=== PATIENT | male | born 1985 | race Caucasian/White ===

== ENCOUNTER 2021-09-13 22:12 | Inpatient (IN) | payer OTHER ==
[~2021-09-13] VITALS: Ht 180.3 cm; Wt 91.7 kg
[2021-09-13] MEDS ORDERED: LORazepam 2 MG/ML VIAL IV STA ×2 (22:25→22:29)
[2021-09-13] MEDS ORDERED: LORazepam 2 MG/ML VIAL As Ordered ONE (22:26)
[2021-09-13] MEDS ORDERED: NS 1,000 ML IV ONE (22:30)
[2021-09-13 22:41] LABS: BASO % 0.2 % (0.0-1.0); EOS % 0.1 % (0.0-3.0); HEMATOCRIT 48.9 % (42.0-52.0); HEMOGLOBIN 17.2 g/dl (13.5-17.5); LYMPH # 1.4 10^3/uL (1.5-5.0); LYMPH % 10.1 % (24.0-44.0); MEAN CORPUSCULAR HEMOGLOBIN 33.5 pg (27.0-33.0); MEAN CORPUSCULAR HGB CONC 35.2 g/dl (32.0-36.5); MEAN CORPUSCULAR VOLUME 95.3 fl (80.0-96.0); MONO % 12.4 % (2.0-8.0); NEUTROPHILS # 10.8 10^3/uL (1.5-8.5); NEUTROPHILS % 76.2 % (36.0-66.0); PLATELET COUNT, AUTOMATED 208 10^3/uL (150-450); RED BLOOD COUNT 5.13 10^6/uL (4.30-6.10); WHITE BLOOD COUNT 14.2 10^3/uL (4.0-10.0)
[2021-09-13 23:02] LABS: MONO # 1.8 10^3/uL (0.0-0.8)
[2021-09-13 23:08] LABS: OSMOLALITY SERUM 299 MOSM/KG (275-295)
[2021-09-13] MEDS ORDERED: MAGNESIUM SULFATE IN WATER 2 GM in IV 1 EA IV STA ×2 (23:16)
[2021-09-13 23:21] LABS: ABG BASE EXCESS -2.7 (-2.0-2.0); ABG HCO3 20.5 MEQ/L (22.0-26.0); ABG O2 SATURATION 98.6 % (95.0-99.0); ABG PARTIAL PRESSURE CO2 31.9 mmHg (35.0-45.0); ABG PARTIAL PRESSURE O2 134.5 mmHg (75.0-100.0); ABG STANDARD HCO3 22.3 MEQ/L (22.0-26.0); ABG TOTAL CO2 21.5 MEQ/L (22.0-29.0); ABG pH (ARTERIAL) 7.426 UNITS (7.350-7.450)
[2021-09-13 23:23] LABS: ACETAMINOPHEN LEVEL < 2.0 UG/ML (10.0-30.0); ALBUMIN 4.8 GM/DL (3.2-5.2); ALT/SGPT 271 U/L (12-78); BILIRUBIN,DIRECT 1.5 MG/DL (0.0-0.2); BILIRUBIN,TOTAL 4.4 MG/DL (0.2-1.0); BLOOD UREA NITROGEN 13 MG/DL (7-18); CALCIUM LEVEL 10.8 MG/DL (8.5-10.1); CARBON DIOXIDE LEVEL 16 MEQ/L (21-32); CHLORIDE LEVEL 91 MEQ/L (98-107); CREATININE FOR GFR 1.74 MG/DL (0.70-1.30); ETHYL ALCOHOL (ETHANOL) < 0.003 % (0.000-0.010); GLOMERULAR FILTRATION RATE 47.8 (>60); GLUCOSE, FASTING 170 MG/DL (70-100); MAGNESIUM LEVEL 1.7 MG/DL (1.8-2.4); PHOSPHORUS LEVEL 3.5 MG/DL (2.5-4.9); POTASSIUM SERUM 3.4 MEQ/L (3.5-5.1); SALICYLATE LEVEL < 1.7 MG/DL (5.0-30.0); SODIUM LEVEL 137 MEQ/L (136-145); TOTAL PROTEIN 8.5 GM/DL (6.4-8.2)
[2021-09-13] MEDS ORDERED: cefTRIAXone SOD 2 GM in D5W MINI-BAG PLUS 50 ML IV ONE (23:30)
[2021-09-13] MEDS ORDERED: NS 1,590 ML in IV 1 EA IV ONE (23:30)
[2021-09-13] MEDS ORDERED: ISOVUE-370 76% 100ML VIAL As Ordered ONE (23:42)
[2021-09-14] VITALS (18 sets, daily range): BP systolic 115–150; BP diastolic 64–96
[2021-09-14] MEDS ORDERED: OXAZEPAM 15MG CAP PO ONE (00:45)
[2021-09-14] MEDS ORDERED: THIAMINE 200MG 2ML VIAL IM ONE (01:50)
[2021-09-14 01:51] LABS: RSV AMPLIFICATION NEGATIVE (NEGATIVE)
[2021-09-14] MEDS: NS 1,000 ML IV SCH ×2 (02:34→05:16)
[2021-09-14] MEDS: levETIRAcetam INJection 500 MG in D5W MINI-BAG PLUS 100 ML IV SCH ×2 (02:43→14:58)
[2021-09-14] MEDS: chlordiazePOXIDE 25 MG CAP PO SCH ×3 (02:43→20:48)
[2021-09-14 03:00] LABS: AMPHETAMINES LEVEL URINE NEGATIVE (NEGATIVE); BARBITURATES URINE NEGATIVE (NEGATIVE); BENZODIAZEPINES URINE NEGATIVE (NEGATIVE); CANNABINOIDS URINE NEGATIVE (NEGATIVE); COCAINE METABOLITE URINE NEGATIVE (NEGATIVE); METHADONE URINE NEGATIVE (NEGATIVE); OPIATES URINE NEGATIVE (NEGATIVE); PHENCYCLIDINE URINE NEGATIVE (NEGATIVE)
[2021-09-14 05:23] LABS: INR 1.15; PROTHROMBIN TIME 15.1 SECONDS (12.7-14.5)
[2021-09-14] MEDS ORDERED: LORazepam 2 MG/ML VIAL IV STA ×2 (05:30→05:44)
[2021-09-14] MEDS ORDERED: AMLO1TAB25 PO (06:05)
[2021-09-14] MEDS ORDERED: LOSA25TA13 PO (06:05)
[2021-09-14] MEDS ORDERED: HOME MED LIST COMPLETE! XX SCH (06:10)
[2021-09-14 06:11] LABS: ALBUMIN 3.3 GM/DL (3.2-5.2); ALT/SGPT 183 U/L (12-78); BILIRUBIN,TOTAL 2.2 MG/DL (0.2-1.0); BLOOD UREA NITROGEN 10 MG/DL (7-18); CALCIUM LEVEL 7.7 MG/DL (8.5-10.1); CARBON DIOXIDE LEVEL 27 MEQ/L (21-32); CHLORIDE LEVEL 97 MEQ/L (98-107); CREATININE FOR GFR 0.92 MG/DL (0.70-1.30); GLOMERULAR FILTRATION RATE > 60.0 (>60); GLUCOSE, FASTING 88 MG/DL (70-100); POTASSIUM SERUM 2.1 MEQ/L (3.5-5.1); SODIUM LEVEL 133 MEQ/L (136-145); TOTAL PROTEIN 6.3 GM/DL (6.4-8.2)
[2021-09-14] MEDS ORDERED: POTASSIUM CHLORIDE 10% LIQ 20 MEQ/15 ML UDC PO ONE (06:20)
[2021-09-14] MEDS: KCL 10MEQ/100ML SWI (KRUN) 10 MEQ in IV 1 EA IV SCH ×6 (06:50→21:38)
[2021-09-14] MEDS ORDERED: MAGNESIUM SULFATE IN WATER 2 GM in IV 1 EA IV STA ×2 (06:59)
[2021-09-14] MEDS ORDERED: NS 1,000 ML IV ONE (07:00)
[2021-09-14] MEDS ORDERED: MAG SULF 1GM/100ML (MAG RUN) 1 GM in IV 1 EA IV SCH (07:45)
[2021-09-14] MEDS: THIAMINE 100 MG TAB PO SCH (09:06)
[2021-09-14] MEDS: MULTIVITAMINS/MINERALS THERAP 1 TAB PO SCH (09:06)
[2021-09-14] MEDS: LORazepam 2 MG TAB PO PRN ×2 (09:07→15:01)
[2021-09-14] MEDS: FOLIC ACID 1 MG TAB PO SCH (09:07)
[2021-09-14 12:53] LABS: POTASSIUM SERUM 2.6 MEQ/L (3.5-5.1)
[2021-09-14] MEDS ORDERED: POTASSIUM CHLORIDE 10MEQ SR TABLET PO ONE ×2 (14:50→23:30)
[2021-09-14] MEDS: LORazepam 2 MG TAB PO SCH ×2 (18:00→23:00)
[2021-09-14 19:20] LABS: POTASSIUM SERUM 2.5 MEQ/L (3.5-5.1)
[2021-09-15] VITALS (8 sets, daily range): BP systolic 133–147; BP diastolic 70–100
[2021-09-15] MEDS ORDERED: POTASSIUM CHLORIDE 10MEQ SR TABLET PO ONE ×2 (02:30→09:00)
[2021-09-15] MEDS: LORazepam 2 MG TAB PO SCH ×2 (06:02→11:51)
[2021-09-15 07:15] LABS: BASO % 0.4 % (0.0-1.0); EOS % 0.6 % (0.0-3.0); HEMATOCRIT 39.1 % (42.0-52.0); LYMPH % 20.4 % (24.0-44.0); MEAN CORPUSCULAR HEMOGLOBIN 33.6 pg (27.0-33.0); MEAN CORPUSCULAR HGB CONC 35.8 g/dl (32.0-36.5); MEAN CORPUSCULAR VOLUME 93.8 fl (80.0-96.0); MONO # 0.5 10^3/uL (0.0-0.8); MONO % 9.2 % (2.0-8.0); NEUTROPHILS # 3.5 10^3/uL (1.5-8.5); NEUTROPHILS % 68.8 % (36.0-66.0); PLATELET COUNT, AUTOMATED 136 10^3/uL (150-450); RED BLOOD COUNT 4.17 10^6/uL (4.30-6.10); WHITE BLOOD COUNT 5.1 10^3/uL (4.0-10.0)
[2021-09-15 07:55] LABS: ALBUMIN 3.3 GM/DL (3.2-5.2); ALT/SGPT 154 U/L (12-78); BILIRUBIN,TOTAL 2.7 MG/DL (0.2-1.0); BLOOD UREA NITROGEN 5 MG/DL (7-18); CALCIUM LEVEL 7.6 MG/DL (8.5-10.1); CARBON DIOXIDE LEVEL 22 MEQ/L (21-32); CHLORIDE LEVEL 105 MEQ/L (98-107); CREATININE FOR GFR 0.65 MG/DL (0.70-1.30); GLOMERULAR FILTRATION RATE > 60.0 (>60); GLUCOSE, FASTING 78 MG/DL (70-100); POTASSIUM SERUM 3.2 MEQ/L (3.5-5.1); SODIUM LEVEL 138 MEQ/L (136-145); TOTAL PROTEIN 6.2 GM/DL (6.4-8.2)
[2021-09-15] MEDS: FOLIC ACID 1 MG TAB PO SCH (08:39)
[2021-09-15] MEDS: THIAMINE 100 MG TAB PO SCH (08:39)
[2021-09-15] MEDS: MULTIVITAMINS/MINERALS THERAP 1 TAB PO SCH (08:39)
[2021-09-15] MEDS ORDERED: CALCIUM GLUCONATE 1,000 MG in D5W MINI-BAG PLUS 100 ML IV ONE (09:00)
[2021-09-15] MEDS: KCL 10MEQ/100ML SWI (KRUN) 10 MEQ in IV 1 EA IV SCH ×3 (09:28→11:50)
[2021-09-15 09:37] LABS: MAGNESIUM LEVEL 1.7 MG/DL (1.8-2.4)
[2021-09-15] MEDS ORDERED: MAG SULF 1GM/100ML (MAG RUN) 1 GM in IV 1 EA IV ONE (13:00)
[2021-09-15 13:42] LABS: BLOOD UREA NITROGEN 6 MG/DL (7-18); CALCIUM LEVEL 8.2 MG/DL (8.5-10.1); CARBON DIOXIDE LEVEL 27 MEQ/L (21-32); CHLORIDE LEVEL 102 MEQ/L (98-107); CREATININE FOR GFR 0.66 MG/DL (0.70-1.30); GLOMERULAR FILTRATION RATE > 60.0 (>60); GLUCOSE, FASTING 95 MG/DL (70-100); POTASSIUM SERUM 3.8 MEQ/L (3.5-5.1); SODIUM LEVEL 135 MEQ/L (136-145)
[2021-09-15] MEDS ORDERED: VITMTA PO (13:59)
[2021-09-15] MEDS ORDERED: THIA100TA PO (13:59)
[2021-09-15] MEDS ORDERED: FOLI1TAB11 PO (13:59)
[2021-09-15] MEDS ORDERED: POTA-151 PO (14:35)
== END 2021-09-15 15:10 | disposition home or self-care (01) | DRG 898 ==
LOC: M ED 22:12 → M ED INP 09-14 01:46 → M ICU 09-14 04:49
PROVIDERS: ADMIT Internal Medicine; ATTEND Internal Medicine
DX: F10.231 Alcohol dependence with withdrawal delirium (principal); E87.2 Acidosis; N17.9 Acute kidney failure, unspecified; I10 Essential (primary) hypertension; F32.A Depression, unspecified; K70.10 Alcoholic hepatitis without ascites; E87.6 Hypokalemia; Z20.822 Contact with and (suspected) exposure to COVID-19; Z79.899 Other long term (current) drug therapy; D72.829 Elevated white blood cell count, unspecified; G40.409 Other generalized epilepsy and epileptic syndromes, not intractable, without status epilepticus; E83.42 Hypomagnesemia; E83.51 Hypocalcemia

== ENCOUNTER 2021-09-22 23:32 | Emergency (ER) | payer OTHER ==
[~2021-09-22] VITALS: Ht 180.3 cm; Wt 90.9 kg
[~2021-09-22 23:32] MED LIST: AMLO1TAB25 PO; FOLI1TAB11 PO; LOSA25TA13 PO; POTA-151 PO; THIA100TA PO; VITMTA PO
[2021-09-23] MEDS ORDERED: LORazepam 2 MG/ML VIAL IV STA (01:07)
[2021-09-23] MEDS ORDERED: OXAZEPAM 15MG CAP PO ONE (01:10)
[2021-09-23 01:28] LABS: BASO # 0.1 10^3/uL (0.0-0.2); BASO % 1.7 % (0.0-1.0); EOS % 0.9 % (0.0-3.0); HEMATOCRIT 39.3 % (42.0-52.0); HEMOGLOBIN 13.5 g/dl (13.5-17.5); LYMPH # 1.4 10^3/uL (1.5-5.0); LYMPH % 41.6 % (24.0-44.0); MEAN CORPUSCULAR HEMOGLOBIN 33.4 pg (27.0-33.0); MEAN CORPUSCULAR HGB CONC 34.4 g/dl (32.0-36.5); MEAN CORPUSCULAR VOLUME 97.3 fl (80.0-96.0); MONO # 0.5 10^3/uL (0.0-0.8); MONO % 13.4 % (2.0-8.0); NEUTROPHILS # 1.4 10^3/uL (1.5-8.5); NEUTROPHILS % 41.5 % (36.0-66.0); PLATELET COUNT, AUTOMATED 360 10^3/uL (150-450); RED BLOOD COUNT 4.04 10^6/uL (4.30-6.10); WHITE BLOOD COUNT 3.4 10^3/uL (4.0-10.0)
[2021-09-23] MEDS ORDERED: MIDAZOLAM INJ 2MG/2ML VIAL (J2250 PER 1MG) IV ONE ×2 (01:35→06:00)
[2021-09-23 02:06] LABS: RSV AMPLIFICATION NEGATIVE (NEGATIVE)
[2021-09-23 02:13] LABS: ACETAMINOPHEN LEVEL < 2.0 UG/ML (10.0-30.0); ALBUMIN 3.4 GM/DL (3.2-5.2); ALT/SGPT 341 U/L (12-78); BILIRUBIN,DIRECT 0.4 MG/DL (0.0-0.2); BILIRUBIN,TOTAL 0.6 MG/DL (0.2-1.0); BLOOD UREA NITROGEN 8 MG/DL (7-18); CALCIUM LEVEL 7.7 MG/DL (8.5-10.1); CARBON DIOXIDE LEVEL 29 MEQ/L (21-32); CHLORIDE LEVEL 110 MEQ/L (98-107); CREATININE FOR GFR 0.75 MG/DL (0.70-1.30); ETHYL ALCOHOL (ETHANOL) 0.234 % (0.000-0.010); GLOMERULAR FILTRATION RATE > 60.0 (>60); GLUCOSE, FASTING 104 MG/DL (70-100); POTASSIUM SERUM 3.1 MEQ/L (3.5-5.1); SALICYLATE LEVEL < 1.7 MG/DL (5.0-30.0); SODIUM LEVEL 146 MEQ/L (136-145); TOTAL PROTEIN 6.4 GM/DL (6.4-8.2)
[2021-09-23] MEDS ORDERED: diazePAM 10 MG TAB PO ONE (06:00)
[2021-09-23 06:43] VITALS: BP 149/98
[2021-09-23 06:45] LABS: AMPHETAMINES LEVEL URINE NEGATIVE (NEGATIVE); BARBITURATES URINE NEGATIVE (NEGATIVE); BENZODIAZEPINES URINE POSITIVE (NEGATIVE); CANNABINOIDS URINE NEGATIVE (NEGATIVE); COCAINE METABOLITE URINE NEGATIVE (NEGATIVE); METHADONE URINE NEGATIVE (NEGATIVE); OPIATES URINE NEGATIVE (NEGATIVE); PHENCYCLIDINE URINE NEGATIVE (NEGATIVE)
== END 2021-09-23 06:48 | disposition short-term general hospital (02) ==
LOC: M ED 23:32
DX: F10.239 Alcohol dependence with withdrawal, unspecified (principal); Y90.1 Blood alcohol level of 20-39 mg/100 ml
CPT/HCPCS: 80048; 80076; 80143; 80307; 82077; 82550; 84443; 85025; 87631; 93005; 96374; 96376; 99285; J2250

== ENCOUNTER 2021-12-30 21:09 | Emergency (ER) | payer OTHER ==
[~2021-12-30] VITALS: Ht 182.9 cm; Wt 88.6 kg
[2021-12-31 08:26] VITALS: BP 140/90
[2021-12-31] MEDS ORDERED: ZOLO100T PO (08:52)
[2021-12-31] MEDS ORDERED: NALT50TA4 PO (08:52)
[2021-12-31] MEDS ORDERED: PRAZ1CAP PO (08:52)
== END 2021-12-31 08:55 | disposition home or self-care (01) ==
LOC: M ED 21:09
DX: F10.10 Alcohol abuse, uncomplicated (principal); I10 Essential (primary) hypertension; R25.1 Tremor, unspecified; Z79.899 Other long term (current) drug therapy

== ENCOUNTER 2022-01-09 20:24 | Emergency (ER) | payer OTHER ==
[~2022-01-09] VITALS: Ht 182.9 cm; Wt 86.4 kg
[~2022-01-09 20:24] MED LIST changes: +NALT50TA4 PO; +PRAZ1CAP PO; +ZOLO100T PO
[2022-01-09 20:25] VITALS: BP 131/87
[2022-01-09] MEDS ORDERED: OXAZEPAM 15MG CAP PO ONE ×2 (21:50→22:10)
[2022-01-09] MEDS ORDERED: OXAZ30CA2 PO (22:07)
== END 2022-01-09 22:21 | disposition home or self-care (01) ==
LOC: M ED 20:24
DX: F10.139 Alcohol abuse with withdrawal, unspecified (principal); F32.A Depression, unspecified; F43.10 Post-traumatic stress disorder, unspecified; I10 Essential (primary) hypertension; F17.290 Nicotine dependence, other tobacco product, uncomplicated; Z79.899 Other long term (current) drug therapy

== ENCOUNTER 2022-05-23 11:51 | Inpatient (IN) | payer OTHER ==
[~2022-05-23] VITALS: Ht 182.9 cm; Wt 94.2 kg
[~2022-05-23 11:51] MED LIST changes: +FOLIC ACID 1MG TAB PO SCH; +MULTIVITAMINS/MINERALS THERAP 1 TAB PO SCH; +OXAZ30CA2 PO
[2022-05-23] MEDS ORDERED: TRAZ1TAB14 PO (12:04)
[2022-05-23] MEDS ORDERED: BUSP10TA PO (12:04)
[2022-05-23] MEDS ORDERED: NS 1,000 ML IV ONE (12:40)
[2022-05-23] MEDS ORDERED: LOSARTAN 25 MG TAB PO ONE (12:40)
[2022-05-23 13:02] LABS: HEMATOCRIT 42.5 % (42.0-52.0); HEMOGLOBIN 14.4 g/dl (13.5-17.5); MEAN CORPUSCULAR HEMOGLOBIN 31.6 pg (27.0-33.0); MEAN CORPUSCULAR HGB CONC 33.9 g/dl (32.0-36.5); MEAN CORPUSCULAR VOLUME 93.2 fl (80.0-96.0); PLATELET COUNT, AUTOMATED 265 10^3/uL (150-450); RED BLOOD COUNT 4.56 10^6/uL (4.30-6.10); WHITE BLOOD COUNT 5.3 10^3/uL (4.0-10.0)
[2022-05-23] MEDS ORDERED: LORazepam 2 MG TAB PO PRN ×3 (13:40→23:35)
[2022-05-23 13:44] LABS: ACETAMINOPHEN LEVEL < 2.0 UG/ML (10.0-20.0); ALBUMIN 4.4 G/DL (3.2-5.2); ALKALINE PHOSPHATASE 72 U/L (46-116); ALT/SGPT 24 U/L (7.0-40); AST/SGOT 31 U/L (<34); BILIRUBIN,DIRECT 0.2 MG/DL (<0.4); BILIRUBIN,TOTAL 0.8 MG/DL (0.3-1.2); BLOOD UREA NITROGEN 13 MG/DL (9-23); CALCIUM LEVEL 8.7 MG/DL (8.5-10.1); CARBON DIOXIDE LEVEL 25 MMOL/L (20-31); CHLORIDE LEVEL 106 MMOL/L (98-107); CREATININE FOR GFR 0.76 MG/DL (0.70-1.30); ETHYL ALCOHOL (ETHANOL) 0.204 % (0.000-0.010); GLOMERULAR FILTRATION RATE > 60.0 (>60); GLUCOSE, FASTING 140 MG/DL (60-100); POTASSIUM SERUM 3.7 MMOL/L (3.5-5.1); SALICYLATE LEVEL < 3.0 MG/DL (<30); SODIUM LEVEL 142 MMOL/L (136-145); THYROID STIMULATING HORMONE 0.484 uIU/ML (0.55-4.78)
[2022-05-23 14:14] LABS: AMPHETAMINES LEVEL URINE NEGATIVE (NEGATIVE); BARBITURATES URINE NEGATIVE (NEGATIVE); BENZODIAZEPINES URINE NEGATIVE (NEGATIVE); CANNABINOIDS URINE NEGATIVE (NEGATIVE); COCAINE METABOLITE URINE NEGATIVE (NEGATIVE); METHADONE URINE NEGATIVE (NEGATIVE); OPIATES URINE NEGATIVE (NEGATIVE); PHENCYCLIDINE URINE NEGATIVE (NEGATIVE)
[2022-05-23] MEDS: THIAMINE 100 MG TAB PO SCH ×2 (16:29→21:20)
[2022-05-23] MEDS ORDERED: IBUP200T43 PO (18:04)
[2022-05-23] MEDS ORDERED: HOME MED LIST COMPLETE! XX SCH (18:05)
[2022-05-23] MEDS ORDERED: SERTRALINE 100 MG TAB PO SCH (21:00)
[2022-05-23] MEDS ORDERED: PRAZOSIN 1 MG CAP PO SCH (21:00)
[2022-05-23] MEDS ORDERED: traZODone 100 MG TAB PO SCH (21:00)
[2022-05-23] MEDS ORDERED: busPIRone 10 MG TAB PO SCH (21:00)
[2022-05-23] MEDS ORDERED: THIAMINE 100 MG TAB PO SCH (21:00)
[2022-05-23] MEDS ORDERED: MAALOX 30 ML SUSP *UDC PO PRN (23:35)
[2022-05-23] MEDS ORDERED: OLANZapine ORAL DISINTEGRATING TAB 5MG PO PRN (23:35)
[2022-05-23] MEDS ORDERED: MOM 30ML SUSPENSION UDC PO PRN (23:35)
[2022-05-23] MEDS ORDERED: ACETAMINOPHEN TAB 650MG DOSE (2X325MG) PO PRN (23:35)
[2022-05-24 01:02] VITALS: BP 135/84
[2022-05-24 01:03] VITALS: BP 135/84
[2022-05-24] MEDS: MULTIVITAMINS/MINERALS THERAP 1 TAB PO SCH (07:53)
[2022-05-24] MEDS: LOSARTAN 25 MG TAB PO SCH (07:53)
[2022-05-24] MEDS: THIAMINE 100 MG TAB PO SCH ×2 (07:53→20:10)
[2022-05-24] MEDS: FOLIC ACID 1MG TAB PO SCH (07:54)
[2022-05-24] MEDS: NICOTINE 21MG/24HR 1 EA TRANSDERMAL TD PRN (07:54)
[2022-05-24] MEDS: busPIRone 10 MG TAB PO SCH ×3 (07:54→20:10)
[2022-05-24] MEDS ORDERED: MULTIVITAMINS/MINERALS THERAP 1 TAB PO SCH (09:00)
[2022-05-24] MEDS ORDERED: FOLIC ACID 1MG TAB PO SCH (09:00)
[2022-05-24] MEDS ORDERED: SERTRALINE 100 MG TAB PO SCH (09:00)
[2022-05-24] MEDS ORDERED: LOSARTAN 25 MG TAB PO SCH (09:00)
[2022-05-24] MEDS: SERTRALINE 100 MG TAB PO SCH (09:40)
[2022-05-24 09:42] VITALS: BP 135/84
[2022-05-24 15:44] VITALS: BP 129/78
[2022-05-24 16:40] VITALS: BP 129/78
[2022-05-24] MEDS: PRAZOSIN 1 MG CAP PO SCH (20:10)
[2022-05-24] MEDS: traZODone 50 MG TAB PO SCH (20:10)
[2022-05-25 00:15] VITALS: BP 129/78
[2022-05-25 06:19] VITALS: BP 123/64
[2022-05-25 06:20] VITALS: BP 123/64
[2022-05-25] MEDS: SERTRALINE 100 MG TAB PO SCH (08:05)
[2022-05-25] MEDS: THIAMINE 100 MG TAB PO SCH ×2 (08:05→20:02)
[2022-05-25] MEDS: LOSARTAN 25 MG TAB PO SCH (08:06)
[2022-05-25] MEDS: FOLIC ACID 1MG TAB PO SCH (08:06)
[2022-05-25] MEDS: busPIRone 10 MG TAB PO SCH ×3 (08:06→20:02)
[2022-05-25] MEDS: MULTIVITAMINS/MINERALS THERAP 1 TAB PO SCH (08:06)
[2022-05-25] MEDS: NICOTINE 21MG/24HR 1 EA TRANSDERMAL TD PRN (08:09)
[2022-05-25 14:00] VITALS: BP 134/84
[2022-05-25 14:28] VITALS: BP 134/84
[2022-05-25] MEDS: PRAZOSIN 1 MG CAP PO SCH (20:02)
[2022-05-25] MEDS: traZODone 50 MG TAB PO SCH (20:02)
[2022-05-25 22:30] VITALS: BP 135/92
[2022-05-26 06:03] VITALS: BP 98/57
[2022-05-26] MEDS: busPIRone 10 MG TAB PO SCH (07:59)
[2022-05-26] MEDS: SERTRALINE 100 MG TAB PO SCH (07:59)
[2022-05-26] MEDS: THIAMINE 100 MG TAB PO SCH ×2 (07:59→20:15)
[2022-05-26] MEDS: MULTIVITAMINS/MINERALS THERAP 1 TAB PO SCH (07:59)
[2022-05-26] MEDS: NICOTINE 21MG/24HR 1 EA TRANSDERMAL TD PRN (07:59)
[2022-05-26] MEDS: FOLIC ACID 1MG TAB PO SCH (07:59)
[2022-05-26] MEDS: LOSARTAN 25 MG TAB PO SCH (08:01)
[2022-05-26] MEDS: QUEtiapine FUMARATE 25 MG TAB PO SCH (11:28)
[2022-05-26 14:00] VITALS: BP 123/81
[2022-05-26 16:45] VITALS: BP 123/81
[2022-05-26] MEDS: traZODone 50 MG TAB PO SCH (20:15)
[2022-05-26] MEDS: PRAZOSIN 1 MG CAP PO SCH (20:16)
[2022-05-26 22:00] VITALS: BP 128/76
[2022-05-27 06:34] VITALS: BP 121/68
[2022-05-27 06:35] VITALS: BP 121/68
[2022-05-27] MEDS: FOLIC ACID 1MG TAB PO SCH (08:01)
[2022-05-27] MEDS: NICOTINE 21MG/24HR 1 EA TRANSDERMAL TD PRN (08:01)
[2022-05-27] MEDS: SERTRALINE 100 MG TAB PO SCH (08:02)
[2022-05-27] MEDS: MULTIVITAMINS/MINERALS THERAP 1 TAB PO SCH (08:02)
[2022-05-27] MEDS: LOSARTAN 25 MG TAB PO SCH (08:03)
[2022-05-27] MEDS: QUEtiapine FUMARATE 25 MG TAB PO SCH (08:03)
[2022-05-27 14:01] VITALS: BP 125/67
[2022-05-27 16:41] VITALS: BP 125/67
[2022-05-27] MEDS: traZODone 50 MG TAB PO SCH (20:06)
[2022-05-27] MEDS: PRAZOSIN 1 MG CAP PO SCH (20:07)
[2022-05-27 22:19] VITALS: BP 129/78
[2022-05-28 06:46] VITALS: BP 120/70
[2022-05-28 06:47] VITALS: BP 120/70
[2022-05-28] MEDS: MULTIVITAMINS/MINERALS THERAP 1 TAB PO SCH (08:09)
[2022-05-28] MEDS: FOLIC ACID 1MG TAB PO SCH (08:09)
[2022-05-28] MEDS: QUEtiapine FUMARATE 50MG TAB PO SCH (08:09)
[2022-05-28] MEDS: SERTRALINE 100 MG TAB PO SCH (08:09)
[2022-05-28] MEDS: LOSARTAN 25 MG TAB PO SCH (08:10)
[2022-05-28] MEDS: NICOTINE 21MG/24HR 1 EA TRANSDERMAL TD PRN (08:10)
[2022-05-28 14:00] VITALS: BP 126/82
[2022-05-28 14:30] VITALS: BP 126/82
[2022-05-28] MEDS: traZODone 50 MG TAB PO SCH (20:09)
[2022-05-28] MEDS: PRAZOSIN 1 MG CAP PO SCH (20:11)
[2022-05-28 22:12] VITALS: BP 129/78
[2022-05-29 06:37] VITALS: BP 111/58
[2022-05-29 06:55] VITALS: BP 111/58
[2022-05-29] MEDS: FOLIC ACID 1MG TAB PO SCH (08:14)
[2022-05-29] MEDS: MULTIVITAMINS/MINERALS THERAP 1 TAB PO SCH (08:15)
[2022-05-29] MEDS: LOSARTAN 25 MG TAB PO SCH (08:15)
[2022-05-29] MEDS: QUEtiapine FUMARATE 50MG TAB PO SCH (08:16)
[2022-05-29] MEDS: SERTRALINE 100 MG TAB PO SCH (08:16)
[2022-05-29] MEDS: NICOTINE 21MG/24HR 1 EA TRANSDERMAL TD PRN (08:18)
[2022-05-29 18:25] VITALS: BP 124/86
[2022-05-29] MEDS: traZODone 50 MG TAB PO SCH (20:19)
[2022-05-29] MEDS: PRAZOSIN 1 MG CAP PO SCH (20:19)
[2022-05-30 05:53] VITALS: BP 92/58
[2022-05-30] MEDS: QUEtiapine FUMARATE 50MG TAB PO SCH (08:25)
[2022-05-30] MEDS: SERTRALINE 100 MG TAB PO SCH (08:26)
[2022-05-30 08:27] VITALS: BP 128/85
[2022-05-30] MEDS: LOSARTAN 25 MG TAB PO SCH (08:27)
[2022-05-30] MEDS ORDERED: QUET50TA4 PO (09:27)
== END 2022-05-30 13:03 | disposition home or self-care (01) | DRG 881 ==
LOC: M ED 11:51 → M ED INP 23:32 → M PSY 05-24 00:30
PROVIDERS: ADMIT Psychiatry & Neurology Psychiatry; ATTEND Psychiatry & Neurology Psychiatry
DX: F32.A Depression, unspecified (principal); F10.20 Alcohol dependence, uncomplicated; I10 Essential (primary) hypertension; Z91.82 Personal history of military deployment; F41.9 Anxiety disorder, unspecified; F43.10 Post-traumatic stress disorder, unspecified; Z63.5 Disruption of family by separation and divorce; Z81.1 Family history of alcohol abuse and dependence; Z81.3 Family history of other psychoactive substance abuse and dependence; Z79.899 Other long term (current) drug therapy; Z91.51 Personal history of suicidal behavior

== ENCOUNTER 2022-10-09 17:58 | Inpatient (IN) | payer OTHER ==
[~2022-10-09] VITALS: Ht 182.9 cm; Wt 101.0 kg
[~2022-10-09 17:58] MED LIST changes: +BUSP10TA PO; -FOLIC ACID 1MG TAB PO SCH; +IBUP200T43 PO; -MULTIVITAMINS/MINERALS THERAP 1 TAB PO SCH; +QUET50TA4 PO; +TRAZ1TAB14 PO
[2022-10-09 19:55] LABS: HEMATOCRIT 42.9 % (42.0-52.0); HEMOGLOBIN 14.9 g/dl (13.5-17.5); MEAN CORPUSCULAR HEMOGLOBIN 30.2 pg (27.0-33.0); MEAN CORPUSCULAR HGB CONC 34.7 g/dl (32.0-36.5); PLATELET COUNT, AUTOMATED 279 10^3/uL (150-450); RED BLOOD COUNT 4.93 10^6/uL (4.30-6.10); WHITE BLOOD COUNT 5.7 10^3/uL (4.0-10.0)
[2022-10-09 20:19] LABS: ACETAMINOPHEN LEVEL < 2.0 UG/ML (10.0-20.0)
[2022-10-09 20:20] LABS: ALBUMIN 4.3 G/DL (3.2-5.2); ALKALINE PHOSPHATASE 94 U/L (46-116); ALT/SGPT 23 U/L (7.0-40); AST/SGOT 23 U/L (<34); BILIRUBIN,DIRECT 0.3 MG/DL (<0.4); BILIRUBIN,TOTAL 0.9 MG/DL (0.3-1.2); BLOOD UREA NITROGEN 11 MG/DL (9-23); CALCIUM LEVEL 8.8 MG/DL (8.5-10.1); CARBON DIOXIDE LEVEL 26 MMOL/L (20-31); CHLORIDE LEVEL 104 MMOL/L (98-107); CREATININE FOR GFR 0.95 MG/DL (0.70-1.30); GLOMERULAR FILTRATION RATE > 60.0 (>60); GLUCOSE, FASTING 84 MG/DL (60-100); POTASSIUM SERUM 3.8 MMOL/L (3.5-5.1); SALICYLATE LEVEL < 3.0 MG/DL (<30); SODIUM LEVEL 142 MMOL/L (136-145); TOTAL PROTEIN 7.4 G/DL (5.7-8.2)
[2022-10-09 20:22] LABS: THYROID STIMULATING HORMONE 2.793 uIU/ML (0.55-4.78)
[2022-10-09 20:47] LABS: ETHYL ALCOHOL (ETHANOL) 0.348 % (0.000-0.010)
[2022-10-09 21:07] LABS: AMPHETAMINES LEVEL URINE NEGATIVE (NEGATIVE); BARBITURATES URINE NEGATIVE (NEGATIVE); COCAINE METABOLITE URINE NEGATIVE (NEGATIVE); METHADONE URINE NEGATIVE (NEGATIVE); OPIATES URINE NEGATIVE (NEGATIVE); PHENCYCLIDINE URINE NEGATIVE (NEGATIVE)
[2022-10-09 21:08] LABS: BENZODIAZEPINES URINE NEGATIVE (NEGATIVE); CANNABINOIDS URINE NEGATIVE (NEGATIVE)
[2022-10-09] MEDS ORDERED: DISU1TAB6 PO (22:06)
[2022-10-09] MEDS ORDERED: LOSA25TA13 PO (22:06)
[2022-10-09] MEDS ORDERED: BUSP10TA PO (22:06)
[2022-10-09] MEDS ORDERED: QUET1TAB17 PO ×2 (22:06)
[2022-10-09] MEDS ORDERED: PRAZ1CAP PO (22:06)
[2022-10-09] MEDS ORDERED: ZOLO100T PO (22:06)
[2022-10-09] MEDS ORDERED: AMLO1TAB25 PO (22:06)
[2022-10-09] MEDS ORDERED: FLON1SPR NARES (22:06)
[2022-10-09] MEDS ORDERED: TRAZ1TAB14 PO (22:06)
[2022-10-09] MEDS ORDERED: HOME MED LIST COMPLETE! XX SCH (22:10)
[2022-10-09] MEDS ORDERED: LORazepam 2 MG TAB PO PRN (23:45)
[2022-10-10] MEDS ORDERED: THIAMINE 100 MG TAB PO SCH ×2 (09:00)
[2022-10-10] MEDS ORDERED: LOSARTAN 25 MG TAB PO SCH (09:00)
[2022-10-10] MEDS ORDERED: QUEtiapine FUMARATE 25 MG TAB PO SCH (09:00)
[2022-10-10] MEDS ORDERED: FOLIC ACID 1MG TAB PO SCH (09:00)
[2022-10-10] MEDS ORDERED: SERTRALINE 100 MG TAB PO SCH (09:00)
[2022-10-10] MEDS ORDERED: MULTIVITAMINS/MINERALS THERAP 1 TAB PO SCH (09:00)
[2022-10-10] MEDS ORDERED: diphenhydrAMINE 25MG CAP PO PRN (11:10)
[2022-10-10] MEDS ORDERED: IBUPROFEN 400MG TAB PO PRN (11:10)
[2022-10-10] MEDS ORDERED: MOM 30ML SUSPENSION UDC PO PRN (11:10)
[2022-10-10] MEDS ORDERED: busPIRone 10 MG TAB PO PRN (11:10)
[2022-10-10] MEDS ORDERED: traZODone 50 MG TAB PO PRN (11:10)
[2022-10-10] MEDS ORDERED: LORazepam 2 MG TAB PO PRN (11:10)
[2022-10-10] MEDS ORDERED: MAALOX 30 ML SUSP *UDC PO PRN (11:10)
[2022-10-10] MEDS ORDERED: ACETAMINOPHEN TAB 650MG DOSE (2X325MG) PO PRN (11:10)
[2022-10-10 16:00] VITALS: BP 138/94
[2022-10-10] MEDS: NICOTINE 14 MG/24 HR TRANSDERMAL TD SCH (17:42)
[2022-10-10] MEDS: PRAZOSIN 1 MG CAP PO SCH (20:10)
[2022-10-10] MEDS: THIAMINE 100 MG TAB PO SCH (20:10)
[2022-10-10] MEDS: traZODone 50 MG TAB PO SCH (20:11)
[2022-10-10 20:29] VITALS: BP 142/104
[2022-10-10] MEDS ORDERED: QUEtiapine FUMARATE 50MG TAB PO SCH (21:00)
[2022-10-10 22:28] VITALS: BP 142/104
[2022-10-11 06:41] VITALS: BP 138/82; TEMP 97.4; O2SAT 98
[2022-10-11 06:42] VITALS: BP 138/82
[2022-10-11] MEDS ORDERED: LOSARTAN 25 MG TAB PO SCH (09:00)
[2022-10-11] MEDS: FLUTICASONE PROP 0.05% NASAL SPRAY 16 GM (FLONASE) NARES SCH (09:00)
[2022-10-11] MEDS ORDERED: QUEtiapine FUMARATE 25 MG TAB PO SCH (09:00)
[2022-10-11] MEDS ORDERED: SERTRALINE 100 MG TAB PO SCH (09:00)
[2022-10-11] MEDS: NICOTINE 14 MG/24 HR TRANSDERMAL TD SCH (09:00)
[2022-10-11] MEDS: SERTRALINE 100 MG TAB PO SCH (09:52)
[2022-10-11] MEDS: OXAZEPAM 10MG CAP PO SCH ×2 (09:52→20:08)
[2022-10-11] MEDS: MULTIVITAMINS/MINERALS THERAP 1 TAB PO SCH (09:52)
[2022-10-11] MEDS: FOLIC ACID 1MG TAB PO SCH (09:53)
[2022-10-11] MEDS: THIAMINE 100 MG TAB PO SCH ×2 (09:53→20:08)
[2022-10-11 17:14] VITALS: BP 138/98
[2022-10-11 18:33] VITALS: BP 148/88; TEMP 97.6
[2022-10-11] MEDS: PRAZOSIN 1 MG CAP PO SCH (20:07)
[2022-10-11] MEDS: traZODone 50 MG TAB PO SCH (20:08)
[2022-10-11] MEDS: QUEtiapine FUMARATE 25 MG TAB PO SCH (20:08)
[2022-10-11 20:39] VITALS: BP 126/72
[2022-10-12 05:56] VITALS: BP 116/77; TEMP 98.3; O2SAT 96
[2022-10-12 06:27] VITALS: BP 116/77
[2022-10-12 07:25] LABS: CHOLESTEROL RISK RATIO 3.6 (<5); HDL CHOLESTEROL 44.6 MG/DL (>40); LDL CHOLESTEROL 97.6 MG/DL (<100); NON-HDL-C 116.4 MG/DL
[2022-10-12] MEDS: FLUTICASONE PROP 0.05% NASAL SPRAY 16 GM (FLONASE) NARES SCH (09:00)
[2022-10-12] MEDS ORDERED: amLODIPine 5 MG TAB PO SCH (09:00)
[2022-10-12] MEDS: NICOTINE 14 MG/24 HR TRANSDERMAL TD SCH (09:00)
[2022-10-12] MEDS: SERTRALINE 100 MG TAB PO SCH (09:25)
[2022-10-12] MEDS: THIAMINE 100 MG TAB PO SCH ×2 (09:25→20:08)
[2022-10-12] MEDS: OXAZEPAM 10MG CAP PO SCH (09:25)
[2022-10-12] MEDS: FOLIC ACID 1MG TAB PO SCH (09:26)
[2022-10-12] MEDS: MULTIVITAMINS/MINERALS THERAP 1 TAB PO SCH (09:26)
[2022-10-12 14:30] VITALS: BP 140/88
[2022-10-12 14:35] VITALS: BP 140/88
[2022-10-12 18:00] VITALS: BP 140/88; TEMP 97.6
[2022-10-12] MEDS: PRAZOSIN 1 MG CAP PO SCH (20:08)
[2022-10-12] MEDS: QUEtiapine FUMARATE 25 MG TAB PO SCH (20:08)
[2022-10-12] MEDS: traZODone 50 MG TAB PO SCH (20:08)
[2022-10-13 06:24] VITALS: BP 108/67; TEMP 97.2; O2SAT 95
[2022-10-13] MEDS: FLUTICASONE PROP 0.05% NASAL SPRAY 16 GM (FLONASE) NARES SCH (09:00)
[2022-10-13] MEDS: NICOTINE 14 MG/24 HR TRANSDERMAL TD SCH (09:00)
[2022-10-13] MEDS ORDERED: OXAZEPAM 10MG CAP PO SCH (09:00)
[2022-10-13] MEDS ORDERED: SERTRALINE HCL 50 MG TAB PO SCH (09:00)
[2022-10-13] MEDS: LOSARTAN 25 MG TAB PO SCH (12:03)
[2022-10-13 17:34] VITALS: BP 138/98; TEMP 97.4; O2SAT 96
[2022-10-13 20:44] VITALS: BP 134/90
[2022-10-13] MEDS: traZODone 50 MG TAB PO SCH (20:46)
[2022-10-13] MEDS: QUEtiapine FUMARATE 25 MG TAB PO SCH (20:46)
[2022-10-13] MEDS: PRAZOSIN 1 MG CAP PO SCH (20:46)
[2022-10-14 06:35] VITALS: BP 99/59; TEMP 97.3; O2SAT 96
[2022-10-14] MEDS: FLUTICASONE PROP 0.05% NASAL SPRAY 16 GM (FLONASE) NARES SCH (09:00)
[2022-10-14] MEDS: NICOTINE 14 MG/24 HR TRANSDERMAL TD SCH (09:00)
[2022-10-14] MEDS: SERTRALINE 100 MG TAB PO SCH (09:28)
[2022-10-14] MEDS: LOSARTAN 25 MG TAB PO SCH (09:29)
[2022-10-14 18:12] VITALS: BP 142/91; TEMP 97.7
[2022-10-14] MEDS: QUEtiapine FUMARATE 25 MG TAB PO SCH (20:02)
[2022-10-14 21:23] VITALS: BP 128/88
[2022-10-14] MEDS: traZODone 50 MG TAB PO SCH (21:25)
[2022-10-14] MEDS: PRAZOSIN 1 MG CAP PO SCH (21:25)
[2022-10-15 06:43] VITALS: BP 92/57; TEMP 97.6; O2SAT 96
[2022-10-15] MEDS: FLUTICASONE PROP 0.05% NASAL SPRAY 16 GM (FLONASE) NARES SCH (09:00)
[2022-10-15] MEDS: NICOTINE 14 MG/24 HR TRANSDERMAL TD SCH (09:00)
[2022-10-15] MEDS: SERTRALINE 100 MG TAB PO SCH (09:01)
[2022-10-15] MEDS: LOSARTAN 25 MG TAB PO SCH (09:04)
[2022-10-15] MEDS: NICOTINE 21MG/24HR 1 EA TRANSDERMAL TD SCH (14:19)
[2022-10-15 16:48] VITALS: BP 137/90; TEMP 98.5
[2022-10-15] MEDS: QUEtiapine FUMARATE 25 MG TAB PO SCH (20:03)
[2022-10-15] MEDS: traZODone 50 MG TAB PO SCH (22:06)
[2022-10-15] MEDS: PRAZOSIN 1 MG CAP PO SCH (22:07)
[2022-10-16 06:24] VITALS: BP 113/58; TEMP 98.4; O2SAT 96
[2022-10-16 08:29] VITALS: BP 141/78
[2022-10-16 08:30] VITALS: BP 141/78
[2022-10-16] MEDS: LOSARTAN 25 MG TAB PO SCH (08:30)
[2022-10-16] MEDS: FLUTICASONE PROP 0.05% NASAL SPRAY 16 GM (FLONASE) NARES SCH (08:30)
[2022-10-16] MEDS: SERTRALINE 100 MG TAB PO SCH (08:30)
[2022-10-16] MEDS: NICOTINE 21MG/24HR 1 EA TRANSDERMAL TD SCH (08:31)
[2022-10-16] MEDS ORDERED: NALTREXONE 50 MG TAB PO SCH (09:00)
[2022-10-16] MEDS ORDERED: TRAZ1TAB14 PO (11:13)
[2022-10-16] MEDS ORDERED: PRAZ1CAP PO (11:13)
[2022-10-16] MEDS ORDERED: NALT50TA4 PO (11:13)
[2022-10-16] MEDS ORDERED: SERT200C PO (11:13)
[2022-10-16] MEDS ORDERED: BUSP10TA PO (11:13)
[2022-10-16] MEDS ORDERED: NICO21PAT TD (11:13)
[2022-10-16] MEDS ORDERED: QUET1TAB17 PO (11:13)
[2022-10-16] MEDS ORDERED: QUET50TA4 PO (11:13)
== END 2022-10-16 13:03 | disposition home or self-care (01) | DRG 881 ==
LOC: M ED 17:58 → M ED INP 10-10 11:08 → M PSY 10-10 16:19
PROVIDERS: ADMIT Student in an Organized Health Care Education/Training Program; ATTEND Student in an Organized Health Care Education/Training Program
DX: F32.A Depression, unspecified (principal); R45.851 Suicidal ideations; F43.10 Post-traumatic stress disorder, unspecified; I10 Essential (primary) hypertension; F41.9 Anxiety disorder, unspecified; F10.229 Alcohol dependence with intoxication, unspecified; Z91.51 Personal history of suicidal behavior; Z63.5 Disruption of family by separation and divorce; Z81.1 Family history of alcohol abuse and dependence; Z81.3 Family history of other psychoactive substance abuse and dependence; Z79.899 Other long term (current) drug therapy; Z91.82 Personal history of military deployment